=== PATIENT | male | born 1950 | race Caucasian/White ===

== ENCOUNTER → 2017-02-16 | Outpatient (CLI) | payer MEDICARE, OTHER ==
[2016-03-12 14:36] VITALS: BP 120/71
[~2017-02-16] MED LIST: ACTOS45 MG PO; ADVAIR DISKUS 51 DSK IH; AMBIEN CR 12.12.5 MG PO; ASTELIN137 MCG/AC NS; CELEBREX200 MG PO; CIALIS20 MG PO; DIOVAN320 MG PO; FLEXERIL10 MG PO; FLONASE0.05 MG/AC NS; FORTAMET500 MG PO; HCTZ 25MG25 MG PO; LASIX 20MG TABL20 MG PO; MICRO-K 1010 MEQ PO; NEURONTIN100 MG PO; NITROMIST0.4 MG/Act SL; PROVENTIL0.09 MG/Ac INH; SYNTHROID0.1 MG PO; TENORETIC PO; TESTOSTERON200 MG/ML IM; VITAMIN B11000 MCG/M IM; VITAMIN D22000 IU PO; ZETIA 10MG TAB10 MG PO; ZOCOR 80MG80 MG PO
== END ==
LOC: LAB 13:13
DX: I10 Essential (primary) hypertension (principal); K90.0 Celiac disease; E78.2 Mixed hyperlipidemia; E11.9 Type 2 diabetes mellitus without complications; Z12.5 Encounter for screening for malignant neoplasm of prostate; E03.4 Atrophy of thyroid (acquired); G62.9 Polyneuropathy, unspecified

== ENCOUNTER → 2017-02-22 | Outpatient (CLI) | payer MEDICARE, OTHER ==
[2016-03-12 14:36] VITALS: BP 120/71
== END ==
LOC: LAB 09:52
DX: E11.9 Type 2 diabetes mellitus without complications (principal); I10 Essential (primary) hypertension; K90.0 Celiac disease

== ENCOUNTER → 2017-04-02 | Outpatient (CLI) | payer MEDICARE, OTHER ==
[2016-03-12 14:36] VITALS: BP 120/71
== END ==
LOC: LAB 13:19
DX: I48.0 Paroxysmal atrial fibrillation (principal)

== ENCOUNTER → 2017-06-14 | Outpatient (CLI) | payer MEDICARE, OTHER ==
[2016-03-12 14:36] VITALS: BP 120/71
[2017-06-14 23:53] LABS: IMMUNOGLOBULIN E, TOTAL 277 IU/mL (0-100)
== END ==
LOC: LAB 12:04
PROVIDERS: Internal Medicine Pulmonary Disease
DX: J32.9 Chronic sinusitis, unspecified (principal)

== ENCOUNTER → 2017-08-30 | Outpatient (CLI) | payer MEDICARE, OTHER ==
[2016-03-12 14:36] VITALS: BP 120/71
== END ==
LOC: RAD 14:35
DX: M47.816 Spondylosis without myelopathy or radiculopathy, lumbar region (principal); M47.817 Spondylosis without myelopathy or radiculopathy, lumbosacral region; I70.0 Atherosclerosis of aorta; R60.0 Localized edema

== ENCOUNTER → 2017-09-01 | Outpatient (CLI) | payer MEDICARE, OTHER ==
[2016-03-12 14:36] VITALS: BP 120/71
[2017-09-01 12:39] LABS: ALBUMIN 4.3 g/dL (3.5-5.0); BUN/CREATININE RATIO 20.5 (6.0-26.0); POTASSIUM 4.3 mmol/L (3.6-5.0); TOTAL BILIRUBIN 0.5 mg/dL (0.2-1.3)
== END ==
LOC: LAB 12:05
PROVIDERS: Internal Medicine
DX: I10 Essential (primary) hypertension (principal)

== ENCOUNTER → 2017-09-09 | Outpatient (CLI) | payer MEDICARE, OTHER ==
[2016-03-12 14:36] VITALS: BP 120/71
[2017-09-09 10:40] LABS: BUN/CREATININE RATIO 18.5 (6.0-26.0); CALCIUM 9.2 mg/dL (8.4-10.2); POTASSIUM 4.3 mmol/L (3.6-5.0); TOTAL BILIRUBIN 0.4 mg/dL (0.2-1.3); TOTAL PROTEIN 7.7 g/dL (6.3-8.2)
== END ==
LOC: LAB 10:08
PROVIDERS: Internal Medicine
DX: I10 Essential (primary) hypertension (principal); Z88.8 Allergy status to other drugs, medicaments and biological substances

== ENCOUNTER → 2017-11-25 | Outpatient (CLI) | payer MEDICARE, OTHER ==
[2016-03-12 14:36] VITALS: BP 120/71
[2017-11-25 13:50] LABS: HEMATOCRIT 40.5 % (42.0-52.0); HEMOGLOBIN 12.8 g/dL (13.5-18.0); MEAN CELL VOLUME 99 fl (78-100); MEAN CORPUSCULAR HEMOGLOBIN 31 pg (27-31); MEAN CORPUSCULAR HGB CONC 32 g/dL (33-37); MEAN PLATELET VOLUME 9.4 fl (7.4-10.4); PLATELET COUNT 268 K/mm3 (130-400); RED BLOOD COUNT 4.11 M/mm3 (4.20-5.60); RED CELL DISTRIBUTION WIDTH 14.7 % (11.5-14.5); WHITE BLOOD COUNT 6.4 K/mm3 (4.8-10.8)
[2017-11-25 14:07] LABS: ALBUMIN 3.8 g/dL (3.5-5.0); BUN/CREATININE RATIO 15.7 (6.0-26.0); CALCIUM 9.1 mg/dL (8.4-10.2); POTASSIUM 3.7 mmol/L (3.6-5.0); TOTAL BILIRUBIN 0.6 mg/dL (0.2-1.3); TOTAL PROTEIN 7.3 g/dL (6.3-8.2)
[2017-11-25 15:16] LABS: ERYTHROCYTE SEDIMENTATION RATE 55 mm/hr (0-20)
[2017-11-25 16:03] LABS: LYMPHOCYTE 16 % (20-51); MONOCYTE 10 % (3-10); NEUTROPHILS 73 % (42-75)
[2017-11-25 16:04] LABS: HYPOCHROMIA 1+
== END ==
LOC: LAB 13:26
PROVIDERS: Internal Medicine
DX: E11.9 Type 2 diabetes mellitus without complications (principal); I10 Essential (primary) hypertension; E78.5 Hyperlipidemia, unspecified; J43.1 Panlobular emphysema

== ENCOUNTER → 2017-12-10 | Outpatient (CLI) | payer MEDICARE, OTHER ==
[2016-03-12 14:36] VITALS: BP 120/71
== END ==
LOC: RAD 13:28
DX: M25.461 Effusion, right knee (principal)

== ENCOUNTER → 2018-05-02 | Outpatient (CLI) | payer MEDICARE, OTHER ==
[2016-03-12 14:36] VITALS: BP 120/71
[2018-05-02 20:14] LABS: BASO # 0.1 (0.02-0.10); EOS # 0.3 (0.04-0.40); EOS % 4.1 % (0.0-4.0); HEMATOCRIT 43.9 % (42.0-52.0); HEMOGLOBIN 14.1 g/dL (13.5-18.0); LYMPH# 1.2 (1.50-4.00); MEAN CELL VOLUME 93 fl (78-100); MEAN CORPUSCULAR HEMOGLOBIN 30 pg (27-31); MEAN CORPUSCULAR HGB CONC 32 g/dL (33-37); MEAN PLATELET VOLUME 11.2 fl (7.4-10.4); MONO # 0.8 (0.20-0.80); NEU # 5.4 (1.40-6.50); PLATELET COUNT 319 K/mm3 (130-400); RED BLOOD COUNT 4.72 M/mm3 (4.20-5.60); RED CELL DISTRIBUTION WIDTH 13.8 % (11.5-14.5); WHITE BLOOD COUNT 7.8 K/mm3 (4.8-10.8)
[2018-05-02 20:24] LABS: ALBUMIN 3.6 g/dL (3.5-5.0); CALCIUM 9.5 mg/dL (8.4-10.2); POTASSIUM 4.6 mmol/L (3.6-5.0); TOTAL BILIRUBIN 0.5 mg/dL (0.2-1.3); TOTAL PROTEIN 6.7 g/dL (6.3-8.2)
== END ==
LOC: LAB 16:55
PROVIDERS: Internal Medicine
DX: Z12.5 Encounter for screening for malignant neoplasm of prostate (principal); E11.9 Type 2 diabetes mellitus without complications; M48.061 Spinal stenosis, lumbar region without neurogenic claudication; E78.5 Hyperlipidemia, unspecified; I10 Essential (primary) hypertension

== ENCOUNTER → 2018-06-27 | Outpatient (CLI) | payer MEDICARE, OTHER ==
[2016-03-12 14:36] VITALS: BP 120/71
[2018-06-27 14:38] LABS: HEMATOCRIT 45.9 % (42.0-52.0); HEMOGLOBIN 14.7 g/dL (13.5-18.0); MEAN CELL VOLUME 95 fl (78-100); MEAN CORPUSCULAR HEMOGLOBIN 30 pg (27-31); MEAN CORPUSCULAR HGB CONC 32 g/dL (33-37); MEAN PLATELET VOLUME 9.6 fl (7.4-10.4); PLATELET COUNT 205 K/mm3 (130-400); RED BLOOD COUNT 4.84 M/mm3 (4.20-5.60); RED CELL DISTRIBUTION WIDTH 15.7 % (11.5-14.5); WHITE BLOOD COUNT 4.7 K/mm3 (4.8-10.8)
[2018-06-27 14:42] LABS: ALBUMIN 3.8 g/dL (3.5-5.0); CALCIUM 8.9 mg/dL (8.4-10.2); POTASSIUM 4.1 mmol/L (3.6-5.0); TOTAL BILIRUBIN 0.5 mg/dL (0.2-1.3); TOTAL PROTEIN 6.9 g/dL (6.3-8.2)
[2018-06-27 15:46] LABS: LYMPHOCYTE 23 % (20-51); MONOCYTE 18 % (3-10); NEUTROPHILS 55 % (42-75)
== END ==
LOC: RAD 13:02
PROVIDERS: Internal Medicine
DX: J43.9 Emphysema, unspecified (principal); R05 Cough; J20.9 Acute bronchitis, unspecified; J43.1 Panlobular emphysema; E11.9 Type 2 diabetes mellitus without complications; Z87.09 Personal history of other diseases of the respiratory system

== ENCOUNTER → 2018-09-30 | Outpatient (CLI) | payer MEDICARE, OTHER ==
[2016-03-12 14:36] VITALS: BP 120/71
[2018-09-30 09:15] LABS: HEMATOCRIT 38.5 % (42.0-52.0); HEMOGLOBIN 12.3 g/dL (13.5-18.0); MEAN CELL VOLUME 100 fl (78-100); MEAN CORPUSCULAR HEMOGLOBIN 32 pg (27-31); MEAN CORPUSCULAR HGB CONC 32 g/dL (33-37); MEAN PLATELET VOLUME 9.5 fl (7.4-10.4); PLATELET COUNT 372 K/mm3 (130-400); RED BLOOD COUNT 3.85 M/mm3 (4.20-5.60); RED CELL DISTRIBUTION WIDTH 13.8 % (11.5-14.5); WHITE BLOOD COUNT 9.9 K/mm3 (4.8-10.8)
[2018-09-30 09:25] LABS: ALBUMIN 3.6 g/dL (3.5-5.0); CALCIUM 9.2 mg/dL (8.4-10.2); TOTAL BILIRUBIN 0.5 mg/dL (0.2-1.3)
[2018-09-30 11:49] LABS: LYMPHOCYTE 15 % (20-51); MONOCYTE 10 % (3-10); NEUTROPHILS 73 % (42-75)
== END ==
LOC: LAB 08:46
PROVIDERS: Internal Medicine
DX: E11.9 Type 2 diabetes mellitus without complications (principal); M48.061 Spinal stenosis, lumbar region without neurogenic claudication; J43.1 Panlobular emphysema; E78.2 Mixed hyperlipidemia; I10 Essential (primary) hypertension; J20.8 Acute bronchitis due to other specified organisms

== ENCOUNTER → 2018-10-03 | Outpatient (CLI) | payer MEDICARE, OTHER ==
[2016-03-12 14:36] VITALS: BP 120/71
[2018-10-03 13:13] LABS: CALCIUM 9.2 mg/dL (8.4-10.2); POTASSIUM 5.1 mmol/L (3.6-5.0)
== END ==
LOC: LAB 11:54
PROVIDERS: Internal Medicine
DX: I87.2 Venous insufficiency (chronic) (peripheral) (principal); I10 Essential (primary) hypertension

== ENCOUNTER → 2018-10-11 | Outpatient (CLI) | payer MEDICARE, OTHER ==
[2016-03-12 14:36] VITALS: BP 120/71
[2018-10-11 13:47] LABS: CALCIUM 9.8 mg/dL (8.4-10.2); POTASSIUM 4.9 mmol/L (3.6-5.0)
== END ==
LOC: LAB 13:22
PROVIDERS: Internal Medicine
DX: I87.2 Venous insufficiency (chronic) (peripheral) (principal); I10 Essential (primary) hypertension

== ENCOUNTER → 2018-11-11 | Outpatient (CLI) | payer MEDICARE, OTHER ==
[2018-11-03 15:19] VITALS: BP 152/77
[~2018-11-11] MED LIST changes: +ALDACTONE 25MG25 MG PO; +ASPIRIN 81M81 MG/TA2 PO; +BISOPROLOL FUMA10 M1 PO; +CEFDINIR300 MG PO; +CLONIDINE1 EAC2 TD; +COLCRYS0.6 MG PO; +CYANOCOBAL1000 MCG/1 IM; +DOFETILIDE500 MCG PO; +ELIQUIS5 MG PO; +ERGOCALCIFER50000 IU PO; -FORTAMET500 MG PO; +GLUCOPHAGE PO; +IPRATROPIUM BROM3 M1 IH; -LASIX 20MG TABL20 MG PO; +LASIX20 M1 PO; +TRULICITY1.5 MG/0.5 SC
[2018-11-11 11:26] LABS: BASO # 0.1 (0.02-0.10); EOS # 0.5 (0.04-0.40); HEMATOCRIT 40.8 % (42.0-52.0); HEMOGLOBIN 13.2 g/dL (13.5-18.0); LYMPH# 1.3 (1.50-4.00); MEAN CELL VOLUME 99 fl (78-100); MEAN CORPUSCULAR HEMOGLOBIN 32 pg (27-31); MEAN CORPUSCULAR HGB CONC 32 g/dL (33-37); MEAN PLATELET VOLUME 9.7 fl (7.4-10.4); MONO # 0.7 (0.20-0.80); NEU # 3.6 (1.40-6.50); PLATELET COUNT 319 K/mm3 (130-400); RED BLOOD COUNT 4.12 M/mm3 (4.20-5.60); RED CELL DISTRIBUTION WIDTH 12.9 % (11.5-14.5); WHITE BLOOD COUNT 6.2 K/mm3 (4.8-10.8)
[2018-11-11 11:34] LABS: ALBUMIN 3.8 g/dL (3.5-5.0); POTASSIUM 5.1 mmol/L (3.6-5.0); TOTAL BILIRUBIN 0.4 mg/dL (0.2-1.3); TOTAL PROTEIN 7.1 g/dL (6.3-8.2)
[2018-11-11 11:39] LABS: EOS % 7.6 % (0.0-4.0)
== END ==
LOC: LAB 10:51
PROVIDERS: Internal Medicine
DX: E11.9 Type 2 diabetes mellitus without complications (principal); M48.061 Spinal stenosis, lumbar region without neurogenic claudication

== ENCOUNTER → 2019-04-21 | Outpatient (CLI) | payer MEDICARE, OTHER ==
[2018-11-03 15:19] VITALS: BP 152/77
[2019-04-21 13:47] LABS: EOS # 0.3 (0.04-0.40); EOS % 4.3 % (0.0-4.0); HEMATOCRIT 39.9 % (42.0-52.0); HEMOGLOBIN 13.5 g/dL (13.5-18.0); LYMPH# 1.1 (1.50-4.00); MEAN CELL VOLUME 100 fl (78-100); MEAN CORPUSCULAR HEMOGLOBIN 34 pg (27-31); MEAN CORPUSCULAR HGB CONC 34 g/dL (33-37); MEAN PLATELET VOLUME 9.7 fl (7.4-10.4); MONO # 0.8 (0.20-0.80); NEU # 5.3 (1.40-6.50); PLATELET COUNT 233 K/mm3 (130-400); RED CELL DISTRIBUTION WIDTH 13.4 % (11.5-14.5); WHITE BLOOD COUNT 7.7 K/mm3 (4.8-10.8)
[2019-04-21 13:49] LABS: URINE APPEARANCE CLEAR; URINE BILIRUBIN NEGATIVE (NEGATIVE); URINE BLOOD TRACE (NEGATIVE); URINE COLOR YELLOW; URINE GLUCOSE 50 mg/dL mg/dL (NEGATIVE); URINE KETONE NEGATIVE (NEGATIVE); URINE LEUKOCYTE ESTERASE NEGATIVE (NEGATIVE); URINE NITRATE NEGATIVE (NEGATIVE); URINE PROTEIN(semi-quant) 3+ mg/dL (NEGATIVE); URINE UROBILINOGEN NORMAL (NORMAL)
[2019-04-21 13:50] LABS: URINE MUCUS PRESENT (NOT PRESENT)
[2019-04-21 13:56] LABS: ALBUMIN 3.2 g/dL (3.4-4.8); POTASSIUM 4.7 mmol/L (3.5-5.1)
[2019-04-21 13:58] LABS: CALCIUM 9.4 mg/dL (8.3-10.5)
[2019-04-21 13:59] LABS: TOTAL PROTEIN 6.1 g/dL (6.2-8.1)
[2019-04-21 14:01] LABS: TOTAL BILIRUBIN 0.5 mg/dL (0.2-1.2)
[2019-04-21 14:06] LABS: MAGNESIUM 1.52 mg/dL (1.60-2.60)
[2019-04-21 14:57] LABS: ERYTHROCYTE SEDIMENTATION RATE 50 mm/hr (0-20)
[2019-04-21 23:33] LABS: TESTOSTERONE 727 ng/dL (221-716)
== END ==
LOC: LAB 13:08
PROVIDERS: Internal Medicine
DX: Z12.5 Encounter for screening for malignant neoplasm of prostate (principal); Z12.11 Encounter for screening for malignant neoplasm of colon; I10 Essential (primary) hypertension; E11.9 Type 2 diabetes mellitus without complications; E03.9 Hypothyroidism, unspecified; E53.8 Deficiency of other specified B group vitamins; E78.5 Hyperlipidemia, unspecified

== ENCOUNTER → 2019-05-18 | Outpatient (CLI) | payer MEDICARE, OTHER ==
[2018-11-03 15:19] VITALS: BP 152/77
[2019-05-18 14:55] LABS: POTASSIUM 5.1 mmol/L (3.5-5.1)
[2019-05-18 14:56] LABS: CALCIUM 9.1 mg/dL (8.3-10.5)
== END ==
LOC: RAD 08:41
PROVIDERS: Internal Medicine Nephrology
DX: I12.9 Hypertensive chronic kidney disease with stage 1 through stage 4 chronic kidney disease, or unspecified chronic kidney disease (principal); N18.3 Chronic kidney disease, stage 3 (moderate); N28.81 Hypertrophy of kidney

== ENCOUNTER → 2019-06-30 | Outpatient (CLI) | payer MEDICARE, OTHER ==
[2018-11-03 15:19] VITALS: BP 152/77
[2019-06-30 11:24] LABS: POTASSIUM 4.1 mmol/L (3.5-5.1)
[2019-06-30 11:25] LABS: CALCIUM 9.4 mg/dL (8.3-10.5)
== END ==
LOC: LAB 10:46
PROVIDERS: Internal Medicine Nephrology
DX: I12.9 Hypertensive chronic kidney disease with stage 1 through stage 4 chronic kidney disease, or unspecified chronic kidney disease (principal); N18.3 Chronic kidney disease, stage 3 (moderate)

== ENCOUNTER → 2019-12-08 | Outpatient (CLI) | payer MEDICARE, OTHER ==
[2018-11-03 15:19] VITALS: BP 152/77
[2019-12-13 14:29] LABS: URINE CONCENTRATION 24HR (PEP) 524 mg/dL (())
[2019-12-14 15:26] LABS: URINE A/G RATIO 24HR (PEP) 1.59 (()); URINE ALBUMIN 24HR (PEP) 61 % (()); URINE ALPHA 1 GLOB 24HR (PEP) 7 % (()); URINE ALPHA 2 GLOB 24HR (PEP) 8 % (()); URINE BETA 24HR (PEP) 15 % (()); URINE GAMMA GLOB 24HR (PEP) 9 % (())
== END ==
LOC: LAB 13:23
PROVIDERS: Internal Medicine
DX: I12.9 Hypertensive chronic kidney disease with stage 1 through stage 4 chronic kidney disease, or unspecified chronic kidney disease (principal); N18.3 Chronic kidney disease, stage 3 (moderate)

== ENCOUNTER → 2020-01-29 | Outpatient (CLI) | payer MEDICARE, OTHER ==
[2018-11-03 15:19] VITALS: BP 152/77
[2020-01-29 12:48] LABS: HEMATOCRIT 37.3 % (42.0-52.0); HEMOGLOBIN 11.6 g/dL (13.5-18.0); MEAN CELL VOLUME 97 fl (78-100); MEAN CORPUSCULAR HEMOGLOBIN 30 pg (27-31); MEAN CORPUSCULAR HGB CONC 31 g/dL (33-37); MEAN PLATELET VOLUME 9.5 fl (7.4-10.4); PLATELET COUNT 261 K/mm3 (130-400); RED BLOOD COUNT 3.83 M/mm3 (4.20-5.60); WHITE BLOOD COUNT 8.9 K/mm3 (4.8-10.8)
[2020-01-29 13:02] LABS: ALBUMIN 2.7 g/dL (3.4-4.8); POTASSIUM 4.4 mmol/L (3.5-5.1)
[2020-01-29 13:03] LABS: CALCIUM 8.9 mg/dL (8.3-10.5)
[2020-01-29 13:05] LABS: TOTAL PROTEIN 6.2 g/dL (6.2-8.1)
[2020-01-29 13:06] LABS: TOTAL BILIRUBIN 0.2 mg/dL (0.2-1.2)
[2020-01-29 13:11] LABS: MAGNESIUM 1.51 mg/dL (1.60-2.60)
[2020-01-29 13:36] LABS: LYMPHOCYTE 16 % (20-51); MONOCYTE 13 % (3-10); NEUTROPHILS 64 % (42-75)
[2020-01-29 13:52] LABS: ERYTHROCYTE SEDIMENTATION RATE 107 mm/hr (0-20)
[2020-01-30 02:35] LABS: TESTOSTERONE 1029 ng/dL (221-716)
== END ==
LOC: LAB 12:26
PROVIDERS: Internal Medicine
DX: E78.5 Hyperlipidemia, unspecified (principal); E11.9 Type 2 diabetes mellitus without complications; E53.8 Deficiency of other specified B group vitamins; I10 Essential (primary) hypertension; E03.9 Hypothyroidism, unspecified

== ENCOUNTER → 2020-06-04 | Outpatient (CLI) | payer MEDICARE, OTHER ==
[2018-11-03 15:19] VITALS: BP 152/77
[2020-06-04 17:27] LABS: HEMATOCRIT 35.7 % (42.0-52.0); HEMOGLOBIN 11.4 g/dL (13.5-18.0); MEAN CELL VOLUME 98 fl (78-100); MEAN CORPUSCULAR HEMOGLOBIN 31 pg (27-31); MEAN CORPUSCULAR HGB CONC 32 g/dL (33-37); MEAN PLATELET VOLUME 9.5 fl (7.4-10.4); PLATELET COUNT 254 K/mm3 (130-400); RED BLOOD COUNT 3.63 M/mm3 (4.20-5.60); RED CELL DISTRIBUTION WIDTH 13.7 % (11.5-14.5); WHITE BLOOD COUNT 7.3 K/mm3 (4.8-10.8)
[2020-06-04 17:28] LABS: LYMPHOCYTE 13 % (20-51); MONOCYTE 11 % (3-10); NEUTROPHILS 64 % (42-75)
[2020-06-04 17:29] LABS: BAND 2 % (0-10)
[2020-06-04 17:36] LABS: POTASSIUM 5.4 mmol/L (3.5-5.1)
[2020-06-04 17:37] LABS: CALCIUM 8.6 mg/dL (8.3-10.5)
[2020-06-04 17:38] LABS: TOTAL PROTEIN 6.2 g/dL (6.2-8.1)
[2020-06-04 17:40] LABS: TOTAL BILIRUBIN 0.2 mg/dL (0.2-1.2)
[2020-06-04 17:45] LABS: MAGNESIUM 1.79 mg/dL (1.60-2.60)
== END ==
LOC: LAB 17:11
PROVIDERS: Internal Medicine
DX: E11.9 Type 2 diabetes mellitus without complications (principal)

== ENCOUNTER → 2020-06-17 | Outpatient (CLI) | payer MEDICARE, OTHER ==
[2018-11-03 15:19] VITALS: BP 152/77
[2020-06-17 12:39] LABS: HEMATOCRIT 36.1 % (42.0-52.0); HEMOGLOBIN 11.5 g/dL (13.5-18.0); MEAN CELL VOLUME 101 fl (78-100); MEAN CORPUSCULAR HEMOGLOBIN 32 pg (27-31); MEAN CORPUSCULAR HGB CONC 32 g/dL (33-37); PLATELET COUNT 249 K/mm3 (130-400); RED BLOOD COUNT 3.57 M/mm3 (4.20-5.60); RED CELL DISTRIBUTION WIDTH 14.1 % (11.5-14.5); WHITE BLOOD COUNT 8.2 K/mm3 (4.8-10.8)
[2020-06-17 12:59] LABS: LYMPHOCYTE 14 % (20-51); MONOCYTE 15 % (3-10); NEUTROPHILS 65 % (42-75)
[2020-06-17 13:00] LABS: ALBUMIN 2.9 g/dL (3.4-4.8)
[2020-06-17 13:01] LABS: POTASSIUM 3.6 mmol/L (3.5-5.1)
[2020-06-17 13:02] LABS: CALCIUM 8.8 mg/dL (8.3-10.5)
[2020-06-17 13:03] LABS: TOTAL PROTEIN 6.2 g/dL (6.2-8.1)
[2020-06-17 13:05] LABS: TOTAL BILIRUBIN 0.6 mg/dL (0.2-1.2)
[2020-06-17 13:09] LABS: MAGNESIUM 1.75 mg/dL (1.60-2.60)
== END ==
LOC: LAB 12:22
PROVIDERS: Internal Medicine
DX: I48.20 Chronic atrial fibrillation, unspecified (principal)

== ENCOUNTER → 2020-07-02 | Outpatient (CLI) | payer MEDICARE, OTHER ==
[2018-11-03 15:19] VITALS: BP 152/77
[2020-07-02 12:20] LABS: POTASSIUM 4.2 mmol/L (3.5-5.1)
[2020-07-02 12:21] LABS: CALCIUM 8.8 mg/dL (8.3-10.5)
[2020-07-02 12:23] LABS: TOTAL PROTEIN 6.4 g/dL (6.2-8.1)
[2020-07-02 12:24] LABS: TOTAL BILIRUBIN 0.4 mg/dL (0.2-1.2)
[2020-07-02 12:29] LABS: MAGNESIUM 1.75 mg/dL (1.60-2.60)
== END ==
LOC: LAB 11:46
PROVIDERS: Internal Medicine
DX: Z12.5 Encounter for screening for malignant neoplasm of prostate (principal); K90.9 Intestinal malabsorption, unspecified; I48.20 Chronic atrial fibrillation, unspecified; E11.9 Type 2 diabetes mellitus without complications

== ENCOUNTER → 2020-12-30 | Outpatient (CLI) | payer MEDICARE, OTHER ==
[2020-12-30 12:27] LABS: HEMATOCRIT 33.6 % (42.0-52.0); HEMOGLOBIN 10.9 g/dL (13.5-18.0); MEAN CELL VOLUME 98 fl (78-100); MEAN CORPUSCULAR HEMOGLOBIN 32 pg (27-31); MEAN CORPUSCULAR HGB CONC 32 g/dL (33-37); MEAN PLATELET VOLUME 9.6 fl (7.4-10.4); PLATELET COUNT 231 K/mm3 (130-400); RED BLOOD COUNT 3.43 M/mm3 (4.20-5.60); RED CELL DISTRIBUTION WIDTH 13.5 % (11.5-14.5); WHITE BLOOD COUNT 6.6 K/mm3 (4.8-10.8)
[2020-12-30 12:33] LABS: POTASSIUM 4.6 mmol/L (3.5-5.1)
[2020-12-30 12:35] LABS: CALCIUM 8.8 mg/dL (8.3-10.5)
[2020-12-30 12:38] LABS: TOTAL PROTEIN 6.3 g/dL (6.2-8.1)
[2020-12-30 12:40] LABS: TOTAL BILIRUBIN 0.4 mg/dL (0.2-1.2)
[2020-12-30 12:51] LABS: MAGNESIUM 1.96 mg/dL (1.60-2.60)
[2020-12-30 13:12] LABS: LYMPHOCYTE 10 % (20-51); MONOCYTE 14 % (3-10); NEUTROPHILS 71 % (42-75)
[2020-12-31 04:06] LABS: TESTOSTERONE >1500 ng/dL (221-716)
== END ==
LOC: LAB 12:00
PROVIDERS: Internal Medicine
DX: E03.4 Atrophy of thyroid (acquired) (principal); I10 Essential (primary) hypertension; K90.9 Intestinal malabsorption, unspecified; E11.9 Type 2 diabetes mellitus without complications; M10.9 Gout, unspecified; E29.1 Testicular hypofunction

== ENCOUNTER → 2021-03-03 | Outpatient (CLI) | payer MEDICARE, OTHER | LOC: RAD 10:53 | DX: M48.062 Spinal stenosis, lumbar region with neurogenic claudication (principal); M25.551 Pain in right hip; M17.11 Unilateral primary osteoarthritis, right knee ==

== ENCOUNTER → 2021-03-14 | Outpatient (CLI) | payer MEDICARE, OTHER ==
[2021-03-14 16:23] LABS: BASO # 0.08 (0.02-0.10); EOS % 6.9 % (0.0-4.0); HEMATOCRIT 32.6 % (42.0-52.0); HEMOGLOBIN 10.3 g/dL (13.5-18.0); LYMPH# 0.81 (1.50-4.00); MEAN CELL VOLUME 97 fl (78-100); MEAN CORPUSCULAR HEMOGLOBIN 31 pg (27-31); MEAN CORPUSCULAR HGB CONC 32 g/dL (33-37); MEAN PLATELET VOLUME 9.8 fl (7.4-10.4); MONO # 1.14 (0.20-0.80); NEU # 4.69 (1.40-6.50); PLATELET COUNT 307 K/mm3 (130-400); RED BLOOD COUNT 3.36 M/mm3 (4.20-5.60); RED CELL DISTRIBUTION WIDTH 15.1 % (11.5-14.5); WHITE BLOOD COUNT 7.3 K/mm3 (4.8-10.8)
[2021-03-14 16:27] LABS: ALBUMIN 3.2 g/dL (3.4-4.8)
[2021-03-14 16:29] LABS: CALCIUM 10.2 mg/dL (8.3-10.5)
[2021-03-14 16:32] LABS: TOTAL BILIRUBIN 0.4 mg/dL (0.2-1.2)
== END ==
LOC: LAB 15:56
PROVIDERS: Internal Medicine
DX: E11.9 Type 2 diabetes mellitus without complications (principal); E03.4 Atrophy of thyroid (acquired); K90.9 Intestinal malabsorption, unspecified

== ENCOUNTER → 2021-05-08 | Outpatient (CLI) | payer MEDICARE, OTHER ==
[2021-05-08 13:00] LABS: BASO # 0.04 K/mm3 (0.02-0.10); EOS # 0.15 K/mm3 (0.04-0.40); EOS % 1.5 % (0.0-4.0); HEMATOCRIT 34.5 % (42.0-52.0); HEMOGLOBIN 11.2 g/dL (13.5-18.0); LYMPH# 1.09 K/mm3 (1.50-4.00); MEAN CELL VOLUME 96 fl (78-100); MEAN CORPUSCULAR HEMOGLOBIN 31 pg (27-31); MEAN CORPUSCULAR HGB CONC 33 g/dL (33-37); MEAN PLATELET VOLUME 8.8 fl (7.4-10.4); MONO # 1.16 K/mm3 (0.20-0.80); NEU # 7.58 K/mm3 (1.40-6.50); PLATELET COUNT 251 K/mm3 (130-400); RED BLOOD COUNT 3.61 M/mm3 (4.20-5.60); RED CELL DISTRIBUTION WIDTH 14.5 % (11.5-14.5); WHITE BLOOD COUNT 10.1 K/mm3 (4.8-10.8)
[2021-05-08 13:10] LABS: ALBUMIN 3.4 g/dL (3.4-4.8); POTASSIUM 3.7 mmol/L (3.5-5.1)
[2021-05-08 13:11] LABS: CALCIUM 9.8 mg/dL (8.3-10.5)
[2021-05-08 13:12] LABS: TOTAL PROTEIN 7.4 g/dL (6.2-8.1)
[2021-05-08 13:14] LABS: TOTAL BILIRUBIN 0.7 mg/dL (0.2-1.2)
[2021-05-12 13:19] LABS: A/G RATIO (PEP) 0.76 (()); BETA GLOBULINS (PEP) 0.9 g/dL (0.7-1.2)
== END ==
LOC: LAB 12:36
PROVIDERS: Internal Medicine
DX: E11.21 Type 2 diabetes mellitus with diabetic nephropathy (principal); R80.8 Other proteinuria; N18.4 Chronic kidney disease, stage 4 (severe); E03.4 Atrophy of thyroid (acquired); I48.20 Chronic atrial fibrillation, unspecified

== ENCOUNTER → 2021-05-13 | Outpatient (CLI) | payer MEDICARE, OTHER ==
[2021-05-20 23:10] LABS: URINE T PROTEIN, RANDOM (PEP) 159 mg/dL (())
== END ==
LOC: LAB 09:29
PROVIDERS: Internal Medicine
DX: E11.21 Type 2 diabetes mellitus with diabetic nephropathy (principal); N18.31 Chronic kidney disease, stage 3a; R80.8 Other proteinuria

== ENCOUNTER → 2021-05-16 | Outpatient (CLI) | payer MEDICARE, OTHER | LOC: RAD 14:19 | DX: R06.00 Dyspnea, unspecified (principal); Z86.11 Personal history of tuberculosis ==

== ENCOUNTER → 2021-08-12 | Outpatient (CLI) | payer MEDICARE, OTHER ==
[2021-08-12 12:20] LABS: BASO # 0.04 K/mm3 (0.02-0.10); EOS # 0.36 K/mm3 (0.04-0.40); EOS % 4.5 % (0.0-4.0); HEMATOCRIT 30.6 % (42.0-52.0); HEMOGLOBIN 9.8 g/dL (13.5-18.0); LYMPH# 0.68 K/mm3 (1.50-4.00); MEAN CELL VOLUME 95 fl (78-100); MEAN CORPUSCULAR HEMOGLOBIN 30 pg (27-31); MEAN CORPUSCULAR HGB CONC 32 g/dL (33-37); MEAN PLATELET VOLUME 9.1 fl (7.4-10.4); MONO # 0.92 K/mm3 (0.20-0.80); NEU # 5.93 K/mm3 (1.40-6.50); PLATELET COUNT 230 K/mm3 (130-400); RED BLOOD COUNT 3.22 M/mm3 (4.20-5.60); RED CELL DISTRIBUTION WIDTH 14.7 % (11.5-14.5)
[2021-08-12 13:10] LABS: ALBUMIN 3.5 g/dL (3.4-4.8)
[2021-08-12 13:11] LABS: CALCIUM 9.2 mg/dL (8.3-10.5)
[2021-08-12 13:14] LABS: POTASSIUM 4.5 mmol/L (3.5-5.1); TOTAL BILIRUBIN 0.4 mg/dL (0.2-1.2)
== END ==
LOC: LAB 11:52
PROVIDERS: Internal Medicine
DX: Z12.5 Encounter for screening for malignant neoplasm of prostate (principal); E11.9 Type 2 diabetes mellitus without complications

== ENCOUNTER → 2021-10-13 | Outpatient (CLI) | payer MEDICARE, OTHER ==
[2021-10-13 11:16] LABS: POTASSIUM 4.3 mmol/L (3.5-5.1)
== END ==
LOC: LAB 10:30
PROVIDERS: Internal Medicine Nephrology
DX: I12.9 Hypertensive chronic kidney disease with stage 1 through stage 4 chronic kidney disease, or unspecified chronic kidney disease (principal); N18.4 Chronic kidney disease, stage 4 (severe); E87.6 Hypokalemia

== ENCOUNTER → 2021-10-14 | Outpatient (CLI) | payer MEDICARE, OTHER | LOC: LAB 13:25 | DX: I12.9 Hypertensive chronic kidney disease with stage 1 through stage 4 chronic kidney disease, or unspecified chronic kidney disease (principal); N18.4 Chronic kidney disease, stage 4 (severe); E87.6 Hypokalemia ==

== ENCOUNTER → 2021-12-22 | Outpatient (CLI) | payer MEDICARE, OTHER ==
[2021-12-22 15:39] LABS: ALBUMIN 3.7 g/dL (3.4-4.8)
[2021-12-22 15:40] LABS: POTASSIUM 4.2 mmol/L (3.5-5.1)
[2021-12-22 15:42] LABS: TOTAL PROTEIN 6.8 g/dL (6.2-8.1)
[2021-12-22 15:44] LABS: TOTAL BILIRUBIN 0.3 mg/dL (0.2-1.2)
== END ==
LOC: LAB 15:10
PROVIDERS: Internal Medicine
DX: Z12.5 Encounter for screening for malignant neoplasm of prostate (principal); E03.4 Atrophy of thyroid (acquired); E29.1 Testicular hypofunction; E53.8 Deficiency of other specified B group vitamins; I87.2 Venous insufficiency (chronic) (peripheral); M48.062 Spinal stenosis, lumbar region with neurogenic claudication; K90.9 Intestinal malabsorption, unspecified; G47.01 Insomnia due to medical condition; I48.20 Chronic atrial fibrillation, unspecified; E11.22 Type 2 diabetes mellitus with diabetic chronic kidney disease; N18.4 Chronic kidney disease, stage 4 (severe); R06.00 Dyspnea, unspecified

== ENCOUNTER → 2022-03-05 | Outpatient (CLI) | payer MEDICARE, OTHER ==
[2022-03-05 12:24] LABS: BASO # 0.06 K/mm3 (0.02-0.10); EOS # 0.37 K/mm3 (0.04-0.40); HEMATOCRIT 34.2 % (42.0-52.0); HEMOGLOBIN 10.9 g/dL (13.5-18.0); LYMPH# 0.96 K/mm3 (1.50-4.00); MEAN CELL VOLUME 92 fl (78-100); MEAN CORPUSCULAR HEMOGLOBIN 29 pg (27-31); MEAN CORPUSCULAR HGB CONC 32 g/dL (33-37); MEAN PLATELET VOLUME 9.8 fl (7.4-10.4); MONO # 1.06 K/mm3 (0.20-0.80); NEU # 4.96 K/mm3 (1.40-6.50); PLATELET COUNT 225 K/mm3 (130-400); RED BLOOD COUNT 3.72 M/mm3 (4.20-5.60); RED CELL DISTRIBUTION WIDTH 14.6 % (11.5-14.5); WHITE BLOOD COUNT 7.4 K/mm3 (4.8-10.8)
[2022-03-05 12:29] LABS: ALBUMIN 3.9 g/dL (3.4-4.8); POTASSIUM 4.8 mmol/L (3.5-5.1)
[2022-03-05 12:30] LABS: CALCIUM 8.8 mg/dL (8.3-10.5)
[2022-03-05 12:31] LABS: TOTAL PROTEIN 7.3 g/dL (6.2-8.1)
[2022-03-05 12:33] LABS: TOTAL BILIRUBIN 0.6 mg/dL (0.2-1.2)
== END ==
LOC: LAB 12:04
PROVIDERS: Internal Medicine
DX: E78.2 Mixed hyperlipidemia (principal); K90.9 Intestinal malabsorption, unspecified; E11.22 Type 2 diabetes mellitus with diabetic chronic kidney disease; N18.4 Chronic kidney disease, stage 4 (severe); I87.2 Venous insufficiency (chronic) (peripheral); M48.062 Spinal stenosis, lumbar region with neurogenic claudication; E11.42 Type 2 diabetes mellitus with diabetic polyneuropathy

== ENCOUNTER → 2022-09-14 | Outpatient (CLI) | payer MEDICARE, OTHER ==
[2022-09-14 12:53] LABS: POTASSIUM 4.4 mmol/L (3.5-5.1)
[2022-09-14 12:55] LABS: CALCIUM 9.4 mg/dL (8.3-10.5)
== END ==
LOC: LAB 12:32
PROVIDERS: Internal Medicine Nephrology
DX: I12.9 Hypertensive chronic kidney disease with stage 1 through stage 4 chronic kidney disease, or unspecified chronic kidney disease (principal); N18.4 Chronic kidney disease, stage 4 (severe); E11.21 Type 2 diabetes mellitus with diabetic nephropathy

== ENCOUNTER → 2023-04-29 | Outpatient (CLI) | payer MEDICARE, OTHER ==
[2023-04-29 14:25] LABS: ALBUMIN 3.3 g/dL (3.4-4.8)
[2023-04-29 14:26] LABS: POTASSIUM 4.5 mmol/L (3.5-5.1)
[2023-04-29 14:27] LABS: CALCIUM 8.5 mg/dL (8.3-10.5)
== END ==
LOC: LAB 13:28
PROVIDERS: Internal Medicine Nephrology
DX: N18.4 Chronic kidney disease, stage 4 (severe) (principal); R80.8 Other proteinuria

== ENCOUNTER → 2023-06-21 | Outpatient (CLI) | payer MEDICARE, OTHER ==
[2023-06-21 15:34] LABS: BASO # 0.03 K/mm3 (0.02-0.10); EOS # 0.23 K/mm3 (0.04-0.40); EOS % 2.5 % (0.0-4.0); HEMATOCRIT 27.7 % (42.0-52.0); HEMOGLOBIN 8.3 g/dL (13.5-18.0); LYMPH# 0.74 K/mm3 (1.50-4.00); MEAN CELL VOLUME 90 fl (78-100); MEAN CORPUSCULAR HEMOGLOBIN 27 pg (27-31); MEAN CORPUSCULAR HGB CONC 30 g/dL (33-37); MEAN PLATELET VOLUME 9.3 fl (7.4-10.4); NEU # 6.98 K/mm3 (1.40-6.50); PLATELET COUNT 310 K/mm3 (130-400); RED BLOOD COUNT 3.09 M/mm3 (4.20-5.60); RED CELL DISTRIBUTION WIDTH 16.2 % (11.5-14.5); WHITE BLOOD COUNT 9.1 K/mm3 (4.8-10.8)
[2023-06-21 15:41] LABS: ALBUMIN 3.3 g/dL (3.4-4.8)
[2023-06-21 15:42] LABS: CALCIUM 8.7 mg/dL (8.3-10.5)
[2023-06-21 15:43] LABS: TOTAL PROTEIN 7.3 g/dL (6.2-8.1)
[2023-06-21 15:45] LABS: TOTAL BILIRUBIN 0.5 mg/dL (0.2-1.2)
[2023-06-21 15:50] LABS: MAGNESIUM 3.33 mg/dL (1.60-2.60)
== END ==
LOC: LAB 14:56
PROVIDERS: Internal Medicine
DX: I87.2 Venous insufficiency (chronic) (peripheral) (principal); M48.062 Spinal stenosis, lumbar region with neurogenic claudication; E11.9 Type 2 diabetes mellitus without complications; N18.4 Chronic kidney disease, stage 4 (severe); G62.9 Polyneuropathy, unspecified; L89.899 Pressure ulcer of other site, unspecified stage; E29.1 Testicular hypofunction; E53.8 Deficiency of other specified B group vitamins; K90.9 Intestinal malabsorption, unspecified; E61.1 Iron deficiency; M65.342 Trigger finger, left ring finger

== ENCOUNTER 2023-07-16 06:16 | Inpatient (IN) | payer MEDICARE, OTHER ==
[~2023-07-16] VITALS: Ht 177.8 cm; Wt 125.1 kg
[2023-07-16 11:04] LABS: HEMATOCRIT 23.4 % (42.0-52.0); MEAN CELL VOLUME 89 fl (78-100); MEAN CORPUSCULAR HEMOGLOBIN 26 pg (27-31); MEAN CORPUSCULAR HGB CONC 30 g/dL (33-37); MEAN PLATELET VOLUME 9.3 fl (7.4-10.4); PLATELET COUNT 278 K/mm3 (130-400); RED BLOOD COUNT 2.62 M/mm3 (4.20-5.60); RED CELL DISTRIBUTION WIDTH 16.8 % (11.5-14.5); WHITE BLOOD COUNT 7.6 K/mm3 (4.8-10.8)
[2023-07-16 11:07] LABS: HEMOGLOBIN 6.9 g/dL (13.5-18.0)
[2023-07-16 11:16] LABS: ALBUMIN 3.2 g/dL (3.4-4.8)
[2023-07-16 11:17] LABS: CALCIUM 8.3 mg/dL (8.3-10.5)
[2023-07-16 11:19] LABS: TOTAL PROTEIN 6.8 g/dL (6.2-8.1)
[2023-07-16 11:20] LABS: TOTAL BILIRUBIN 0.5 mg/dL (0.2-1.2)
[2023-07-16 11:25] LABS: MAGNESIUM 3.02 mg/dL (1.60-2.60)
[2023-07-16 11:38] VITALS: BP 156/75
[2023-07-16 11:48] LABS: LYMPHOCYTE 7 % (20-51); MONOCYTE 10 % (3-10); NEUTROPHILS 80 % (42-75); NUCLEATED RED BLOOD CELL 1 (0-6)
[2023-07-16 11:49] LABS: HYPOCHROMIA 2+
[2023-07-16 12:09] LABS: URINE APPEARANCE CLEAR (CLEAR); URINE BILIRUBIN NEGATIVE (NEGATIVE); URINE COLOR YELLOW (YELLOW); URINE GLUCOSE 2+ (NEGATIVE); URINE KETONE NEGATIVE (NEGATIVE); URINE PROTEIN(semi-quant) 3+ (NEGATIVE)
[2023-07-16 12:10] LABS: URINE BLOOD TRACE-INTACT (NEGATIVE); URINE LEUKOCYTE ESTERASE NEGATIVE (NEGATIVE); URINE NITRATE NEGATIVE (NEGATIVE)
[2023-07-16] MEDS ORDERED: ZYLOPRIM 100MG100 MG PO (13:12)
[2023-07-16] MEDS ORDERED: ALLOPURINOL300 M1 PO (13:13)
[2023-07-16] MEDS ORDERED: NORVASC 10MG10 MG PO (13:14)
[2023-07-16] MEDS ORDERED: CETIRIZINE HCL10 MG PO (13:17)
[2023-07-16] MEDS ORDERED: CLONIDINE HYDR0.1 MG PO (13:20)
[2023-07-16] MEDS ORDERED: COLESTID 1GM1 G PO (13:26)
[2023-07-16] MEDS ORDERED: ELIQUIS2.5 MG PO (13:26)
[2023-07-16] MEDS ORDERED: COZAAR 50MG50 MG/TAB PO (13:28)
[2023-07-16] MEDS ORDERED: METOLAZONE5 MG PO (13:29)
[2023-07-16] MEDS ORDERED: SINGULAIR PO (13:30)
[2023-07-16] MEDS ORDERED: PIOGLITAZONE HY45 MG PO (13:30)
[2023-07-16] MEDS ORDERED: ROSUVASTATIN CA20 MG PO (13:31)
[2023-07-16] MEDS ORDERED: CARAFATE 1GM1 G PO (13:31)
[2023-07-16] MEDS ORDERED: TRAMADOL 50 MG TAB PO (13:32)
[2023-07-16 13:49] VITALS: BP 171/94
[2023-07-16 17:17] VITALS: BP 160/97
[2023-07-16 22:05] VITALS: BP 166/84
[2023-07-17 02:34] VITALS: BP 167/83
[2023-07-17 05:58] VITALS: BP 163/82
[2023-07-17 06:40] LABS: HEMATOCRIT 25.5 % (42.0-52.0); HEMOGLOBIN 7.3 g/dL (13.5-18.0); MEAN CELL VOLUME 90 fl (78-100); MEAN CORPUSCULAR HEMOGLOBIN 26 pg (27-31); MEAN CORPUSCULAR HGB CONC 29 g/dL (33-37); MEAN PLATELET VOLUME 8.7 fl (7.4-10.4); PLATELET COUNT 278 K/mm3 (130-400); RED BLOOD COUNT 2.82 M/mm3 (4.20-5.60); RED CELL DISTRIBUTION WIDTH 16.8 % (11.5-14.5); WHITE BLOOD COUNT 7.9 K/mm3 (4.8-10.8)
[2023-07-17 06:46] LABS: ALBUMIN 3.3 g/dL (3.4-4.8)
[2023-07-17 06:47] LABS: CALCIUM 8.7 mg/dL (8.3-10.5)
[2023-07-17 06:50] LABS: TOTAL BILIRUBIN 0.5 mg/dL (0.2-1.2)
[2023-07-17 07:26] LABS: LYMPHOCYTE 7 % (20-51); MONOCYTE 8 % (3-10); NEUTROPHILS 81 % (42-75)
[2023-07-17 07:27] LABS: HYPOCHROMIA 2+
[2023-07-17 09:48] VITALS: BP 173/89
[2023-07-17 13:50] VITALS: BP 161/64
[2023-07-17 18:01] VITALS: BP 158/66
[2023-07-17 22:01] VITALS: BP 154/75
[2023-07-18 01:46] VITALS: BP 155/79
[2023-07-18 05:44] VITALS: BP 169/83
[2023-07-18 06:35] LABS: BASO # 0.02 K/mm3 (0.02-0.10); EOS # 0.25 K/mm3 (0.04-0.40); EOS % 3.2 % (0.0-4.0); HEMATOCRIT 25.6 % (42.0-52.0); HEMOGLOBIN 7.4 g/dL (13.5-18.0); LYMPH# 0.64 K/mm3 (1.50-4.00); MEAN CELL VOLUME 90 fl (78-100); MEAN CORPUSCULAR HEMOGLOBIN 26 pg (27-31); MEAN CORPUSCULAR HGB CONC 29 g/dL (33-37); NEU # 6.14 K/mm3 (1.40-6.50); PLATELET COUNT 286 K/mm3 (130-400); RED BLOOD COUNT 2.85 M/mm3 (4.20-5.60); RED CELL DISTRIBUTION WIDTH 16.8 % (11.5-14.5); WHITE BLOOD COUNT 7.8 K/mm3 (4.8-10.8)
[2023-07-18 06:41] LABS: ALBUMIN 3.3 g/dL (3.4-4.8)
[2023-07-18 06:42] LABS: CALCIUM 8.8 mg/dL (8.3-10.5)
[2023-07-18 06:45] LABS: TOTAL BILIRUBIN 0.5 mg/dL (0.2-1.2)
[2023-07-18 09:49] VITALS: BP 182/77
[2023-07-18 14:10] VITALS: BP 163/72
[2023-07-18 17:52] VITALS: BP 186/77
[2023-07-18 22:55] VITALS: BP 169/77
[2023-07-19 01:44] VITALS: BP 174/74
[2023-07-19 05:23] VITALS: BP 160/78
[2023-07-19 09:10] VITALS: BP 136/70
[2023-07-19 13:34] VITALS: BP 132/72
[2023-07-19 17:08] VITALS: BP 146/74
[2023-07-19 22:25] VITALS: BP 143/71
[2023-07-20 01:39] VITALS: BP 169/76
[2023-07-20 05:54] VITALS: BP 155/75
[2023-07-20 07:03] LABS: BASO # 0.06 K/mm3 (0.02-0.10); EOS # 0.43 K/mm3 (0.04-0.40); EOS % 6.1 % (0.0-4.0); HEMATOCRIT 23.7 % (42.0-52.0); LYMPH# 0.78 K/mm3 (1.50-4.00); MEAN CELL VOLUME 88 fl (78-100); MEAN CORPUSCULAR HEMOGLOBIN 26 pg (27-31); MEAN CORPUSCULAR HGB CONC 30 g/dL (33-37); MEAN PLATELET VOLUME 8.9 fl (7.4-10.4); MONO # 0.86 K/mm3 (0.20-0.80); NEU # 4.92 K/mm3 (1.40-6.50); PLATELET COUNT 284 K/mm3 (130-400); RED BLOOD COUNT 2.68 M/mm3 (4.20-5.60); RED CELL DISTRIBUTION WIDTH 16.5 % (11.5-14.5); WHITE BLOOD COUNT 7.1 K/mm3 (4.8-10.8)
[2023-07-20 07:30] LABS: CALCIUM 8.6 mg/dL (8.3-10.5)
[2023-07-20] MEDS ORDERED: TRIAMCINOLONE A15 G2 TP (07:54)
[2023-07-20] MEDS ORDERED: DOFETILIDE125 MCG PO (07:54)
[2023-07-20] MEDS ORDERED: SUCRALFATE1 G1 PO (07:56)
[2023-07-20] MEDS ORDERED: CYANOCOBAL1000 MCG/M IM (07:56)
[2023-07-20] MEDS ORDERED: ZOLPIDEM TART12.5 MG PO (07:57)
[2023-07-20] MEDS ORDERED: POTASSIUM CHLO10 ME8 PO (07:57)
[2023-07-20] MEDS ORDERED: CYCLOBENZAPRINE10 M1 PO (07:58)
[2023-07-20] MEDS ORDERED: CELECOXIB200 M1 PO (07:58)
[2023-07-20] MEDS ORDERED: EZETIMIBE10 M1 PO (07:59)
[2023-07-20] MEDS ORDERED: FUROSEMIDE40 MG PO (08:00)
[2023-07-20] MEDS ORDERED: FARXIGA10 MG PO (08:00)
[2023-07-20] MEDS ORDERED: LOSARTAN POTASS50 M1 PO (08:01)
[2023-07-20] MEDS ORDERED: NITROGLYCE0.4 MG/Ac2 SL (08:01)
[2023-07-20] MEDS ORDERED: BISOPROLOL FUMA10 M1 PO (08:04)
[2023-07-20] MEDS ORDERED: LEVOTHYROXINE125 MCG PO (08:05)
[2023-07-20] MEDS ORDERED: VITAMIN D21250 MCG PO (08:09)
[2023-07-20] MEDS ORDERED: ZAROXOLYN PO (08:11)
[2023-07-20] MEDS ORDERED: COLCHICINE0.6 M2 PO (08:11)
[2023-07-20] MEDS ORDERED: WIXELA 250-501 EACH IH (08:12)
[2023-07-20] MEDS ORDERED: PANTOPRAZOLE SO40 MG PO (08:12)
[2023-07-20 09:52] VITALS: BP 144/79
== END 2023-07-20 13:53 | disposition home or self-care (01) | DRG 683 ==
LOC: MED/SURG 06:16
PROVIDERS: Nurse Practitioner Family; ADMIT Internal Medicine
DX: N17.9 Acute kidney failure, unspecified (principal); I48.20 Chronic atrial fibrillation, unspecified; K90.9 Intestinal malabsorption, unspecified; E29.1 Testicular hypofunction; N18.4 Chronic kidney disease, stage 4 (severe); I12.9 Hypertensive chronic kidney disease with stage 1 through stage 4 chronic kidney disease, or unspecified chronic kidney disease; E11.22 Type 2 diabetes mellitus with diabetic chronic kidney disease; E11.42 Type 2 diabetes mellitus with diabetic polyneuropathy; J43.9 Emphysema, unspecified; K90.0 Celiac disease; E03.9 Hypothyroidism, unspecified; M10.9 Gout, unspecified; E78.2 Mixed hyperlipidemia; G89.29 Other chronic pain; M54.9 Dorsalgia, unspecified; Z79.82 Long term (current) use of aspirin; Z79.01 Long term (current) use of anticoagulants; Z79.890 Hormone replacement therapy; Z79.891 Long term (current) use of opiate analgesic; G47.33 Obstructive sleep apnea (adult) (pediatric)
CPT/HCPCS: A9270; A9270-GY; J1940

== ENCOUNTER → 2023-08-06 | Outpatient (CLI) | payer MEDICARE, OTHER ==
[~2023-08-06] MED LIST changes: +ALLOPURINOL300 M1 PO; +CARAFATE 1GM1 G PO; +CELECOXIB200 M1 PO; +CETIRIZINE HCL10 MG PO; +CLONIDINE HYDR0.1 MG PO; +COLCHICINE0.6 M2 PO; +COLESTID 1GM1 G PO; +COZAAR 50MG50 MG/TAB PO; +CYANOCOBAL1000 MCG/M IM; +CYCLOBENZAPRINE10 M1 PO; +DOFETILIDE125 MCG PO; +ELIQUIS2.5 MG PO; +EZETIMIBE10 M1 PO; +FARXIGA10 MG PO; +FUROSEMIDE40 MG PO; +LEVOTHYROXINE125 MCG PO; +LOSARTAN POTASS50 M1 PO; +METOLAZONE5 MG PO; +NITROGLYCE0.4 MG/Ac2 SL; +NORVASC 10MG10 MG PO; +PANTOPRAZOLE SO40 MG PO; +PIOGLITAZONE HY45 MG PO; +POTASSIUM CHLO10 ME8 PO; +ROSUVASTATIN CA20 MG PO; +SINGULAIR PO; +SUCRALFATE1 G1 PO; +TRAMADOL 50 MG TAB PO; +TRIAMCINOLONE A15 G2 TP; +VITAMIN D21250 MCG PO; +WIXELA 250-501 EACH IH; +ZAROXOLYN PO; +ZOLPIDEM TART12.5 MG PO; +ZYLOPRIM 100MG100 MG PO
[2023-08-06 12:48] LABS: BASO # 0.02 K/mm3 (0.02-0.10); EOS % 3.8 % (0.0-4.0); HEMATOCRIT 25.9 % (42.0-52.0); HEMOGLOBIN 7.5 g/dL (13.5-18.0); MEAN CELL VOLUME 87 fl (78-100); MEAN CORPUSCULAR HEMOGLOBIN 25 pg (27-31); MEAN CORPUSCULAR HGB CONC 29 g/dL (33-37); MEAN PLATELET VOLUME 8.8 fl (7.4-10.4); MONO # 0.95 K/mm3 (0.20-0.80); NEU # 5.82 K/mm3 (1.40-6.50); PLATELET COUNT 280 K/mm3 (130-400); RED BLOOD COUNT 2.97 M/mm3 (4.20-5.60); WHITE BLOOD COUNT 7.8 K/mm3 (4.8-10.8)
[2023-08-06 12:53] LABS: ALBUMIN 3.7 g/dL (3.4-4.8)
[2023-08-06 12:54] LABS: CALCIUM 9.4 mg/dL (8.3-10.5)
[2023-08-06 12:55] LABS: TOTAL PROTEIN 7.4 g/dL (6.2-8.1)
[2023-08-06 12:57] LABS: TOTAL BILIRUBIN 0.4 mg/dL (0.2-1.2)
[2023-08-06 13:02] LABS: MAGNESIUM 2.87 mg/dL (1.60-2.60)
== END ==
LOC: LAB 12:34
PROVIDERS: Internal Medicine
DX: I48.20 Chronic atrial fibrillation, unspecified (principal)

== ENCOUNTER → 2023-08-06 | Outpatient (CLI) | payer MEDICARE, OTHER ==
[~2023-08-06] VITALS: Ht 177.8 cm; Wt 125.1 kg
[2023-08-06 13:28] VITALS: BP 158/87
== END ==
LOC: AMSURD 12:57
DX: E53.8 Deficiency of other specified B group vitamins (principal)
CPT/HCPCS: J1071; J3420

== ENCOUNTER → 2023-08-20 | Outpatient (CLI) | payer MEDICARE, OTHER ==
[2023-08-20 13:16] LABS: HEMOGLOBIN 7.2 g/dL (13.5-18.0); MEAN CELL VOLUME 82 fl (78-100); MEAN CORPUSCULAR HEMOGLOBIN 25 pg (27-31); MEAN CORPUSCULAR HGB CONC 30 g/dL (33-37); MEAN PLATELET VOLUME 8.1 fl (7.4-10.4); PLATELET COUNT 285 K/mm3 (130-400); RED BLOOD COUNT 2.93 M/mm3 (4.20-5.60); RED CELL DISTRIBUTION WIDTH 16.6 % (11.5-14.5); WHITE BLOOD COUNT 7.6 K/mm3 (4.8-10.8)
[2023-08-20 13:22] LABS: ALBUMIN 3.5 g/dL (3.4-4.8)
[2023-08-20 13:23] LABS: SODIUM 133 mmol/L (136-145)
[2023-08-20 13:24] LABS: CALCIUM 8.5 mg/dL (8.3-10.5)
[2023-08-20 13:25] LABS: GLUCOSE 312 mg/dL (75-110)
[2023-08-20 13:26] LABS: CARBON DIOXIDE 19 mmol/L (23-31)
[2023-08-20 14:03] LABS: HYPOCHROMIA 2+; LYMPHOCYTE 6 % (20-51); MONOCYTE 11 % (3-10); NEUTROPHILS 79 % (42-75); OVALOCYTES 1+; SCHISTOCYTES 1+
[2023-08-20 14:06] LABS: TARGET CELLS 1+
== END ==
LOC: LAB 12:14
PROVIDERS: Internal Medicine Nephrology
DX: N18.4 Chronic kidney disease, stage 4 (severe) (principal)

== ENCOUNTER 2023-09-03 13:44 | Outpatient (RCR) | payer MEDICARE, OTHER ==
[2023-08-20 13:02] VITALS: BP 121/71
[~2023-09-03] VITALS: Ht 177.8 cm; Wt 125.1 kg
[~2023-09-03 13:44] MED LIST changes: +Testosterone Cyp in Oil 200 MG/ML 1 ML VIAL IM ONE
[2023-09-03] MEDS ORDERED: Testosterone Cyp in Oil 200 MG/ML 1 ML VIAL IM ONE (14:15)
== END 2023-09-16 | disposition home or self-care (01) ==
LOC: AMSURD
DX: E53.8 Deficiency of other specified B group vitamins (principal)
CPT/HCPCS: J1071; J3420

== ENCOUNTER 2023-11-25 13:30 | Outpatient (RCR) | payer MEDICARE, OTHER ==
[2023-09-21 13:58] VITALS: BP_SYST 160
[2023-11-04 12:18] VITALS: BP 159/85
[~2023-11-25 13:30] MED LIST changes: -Testosterone Cyp in Oil 200 MG/ML 1 ML VIAL IM ONE
[2023-11-25] MEDS ORDERED: Testosterone Cyp in Oil 200 MG/ML 1 ML VIAL IM ONE (13:42)
--- NOTE | 2023-11-26 11:43 | NUR ---
Due to downtime, documentation on EMR completed post care by Courtney Stone RN; refer to scanned downtime paper documentation for full care documention.
== END 2023-12-17 | disposition home or self-care (01) ==
LOC: AMSURD
DX: E29.1 Testicular hypofunction (principal); E53.8 Deficiency of other specified B group vitamins
CPT/HCPCS: J1071; J3420

== ENCOUNTER 2023-12-09 13:08 | Outpatient (RCR) | payer MEDICARE, OTHER ==
[2023-12-09] MEDS ORDERED: Testosterone Cyp in Oil 200 MG/ML 1 ML VIAL IM ONE (14:50)
--- NOTE | 2024-01-28 11:52 | NUR ---
Downtime: An Electronic Health Record (EHR) downtime event occurred during this patient's care. For legal medical record information generated during the downtime period, please reference the patient's legal medical record. Paper or scanned documentation has been incorporated into the legal medical record which is maintained in accordance with Health Information Management (HIM) and record retention policies.
== END 2023-12-17 | disposition home or self-care (01) ==
LOC: AMSURD
DX: E29.1 Testicular hypofunction (principal)
CPT/HCPCS: J1071; J3420

== ENCOUNTER 2024-01-06 13:27 | Outpatient (RCR) | payer MEDICARE, OTHER ==
[~2024-01-06] VITALS: Ht 177.8 cm; Wt 125.1 kg
[2024-01-06] MEDS ORDERED: Testosterone Cyp in Oil 200 MG/ML 1 ML VIAL IM ONE (13:45)
[2024-01-06 14:19] VITALS: BP 171/89
== END 2024-01-16 ==
LOC: AMSURD
DX: E29.1 Testicular hypofunction (principal); E53.8 Deficiency of other specified B group vitamins
CPT/HCPCS: J1071; J3420

== ENCOUNTER → 2024-06-27 | Outpatient (CLI) | payer MEDICARE, OTHER ==
[~2024-06-27] MED LIST changes: +DEPO-TESTOS200 MG/M1 IM
[2024-06-27 14:48] LABS: BASO # 0.05 K/mm3 (0.02-0.10); EOS # 0.34 K/mm3 (0.04-0.40); EOS % 4.1 % (0.0-4.0); HEMATOCRIT 30.3 % (42.0-52.0); HEMOGLOBIN 9.1 g/dL (13.5-18.0); LYMPH# 0.92 K/mm3 (1.50-4.00); MEAN CELL VOLUME 96 fl (78-100); MEAN CORPUSCULAR HEMOGLOBIN 29 pg (27-31); MEAN CORPUSCULAR HGB CONC 30 g/dL (33-37); MEAN PLATELET VOLUME 8.6 fl (7.4-10.4); MONO # 0.96 K/mm3 (0.20-0.80); NEU # 6.05 K/mm3 (1.40-6.50); PLATELET COUNT 269 K/mm3 (130-400); RED BLOOD COUNT 3.15 M/mm3 (4.20-5.60); RED CELL DISTRIBUTION WIDTH 16.8 % (11.5-14.5); WHITE BLOOD COUNT 8.4 K/mm3 (4.8-10.8)
[2024-06-27 14:56] LABS: ALBUMIN 3.5 g/dL (3.4-4.8)
[2024-06-27 14:57] LABS: CALCIUM 9.5 mg/dL (8.3-10.5)
[2024-06-27 14:58] LABS: TOTAL PROTEIN 6.7 g/dL (6.2-8.1)
[2024-06-27 15:00] LABS: TOTAL BILIRUBIN 0.4 mg/dL (0.2-1.2)
[2024-06-27 15:05] LABS: MAGNESIUM 1.92 mg/dL (1.60-2.60)
[2024-06-27 23:48] LABS: TESTOSTERONE 61 ng/dL (221-716)
== END ==
LOC: LAB 14:28
PROVIDERS: Internal Medicine
DX: I48.20 Chronic atrial fibrillation, unspecified (principal); E53.8 Deficiency of other specified B group vitamins; E29.1 Testicular hypofunction; E11.9 Type 2 diabetes mellitus without complications; E03.4 Atrophy of thyroid (acquired); K90.9 Intestinal malabsorption, unspecified; M86.9 Osteomyelitis, unspecified

== ENCOUNTER → 2024-09-22 | Outpatient (CLI) | payer MEDICARE, OTHER ==
[2024-09-22 13:55] LABS: BASO # 0.04 K/mm3 (0.02-0.10); EOS # 0.24 K/mm3 (0.04-0.40); EOS % 3.1 % (0.0-4.0); HEMATOCRIT 39.2 % (42.0-52.0); HEMOGLOBIN 11.9 g/dL (13.5-18.0); LYMPH# 0.76 K/mm3 (1.50-4.00); MEAN CELL VOLUME 96 fl (78-100); MEAN CORPUSCULAR HEMOGLOBIN 29 pg (27-31); MEAN CORPUSCULAR HGB CONC 30 g/dL (33-37); MEAN PLATELET VOLUME 8.5 fl (7.4-10.4); MONO # 0.92 K/mm3 (0.20-0.80); PLATELET COUNT 292 K/mm3 (130-400); RED BLOOD COUNT 4.07 M/mm3 (4.20-5.60); RED CELL DISTRIBUTION WIDTH 15.3 % (11.5-14.5); WHITE BLOOD COUNT 7.8 K/mm3 (4.8-10.8)
[2024-09-22 14:03] LABS: ALBUMIN 3.5 g/dL (3.4-4.8)
[2024-09-22 14:04] LABS: CALCIUM 9.6 mg/dL (8.3-10.5)
[2024-09-22 14:05] LABS: TOTAL PROTEIN 7.3 g/dL (6.2-8.1)
[2024-09-22 14:07] LABS: TOTAL BILIRUBIN 0.3 mg/dL (0.2-1.2)
== END ==
LOC: LAB 13:38
PROVIDERS: Family Medicine
DX: I48.20 Chronic atrial fibrillation, unspecified (principal); N18.4 Chronic kidney disease, stage 4 (severe); S41.131A Puncture wound without foreign body of right upper arm, initial encounter; X58.XXXA Exposure to other specified factors, initial encounter